=== PATIENT | male | born 1970 | race Caucasian/White ===

== ENCOUNTER 2020-01-04 11:03 | Inpatient (IN) | payer MEDICARE, MEDICAID ==
[2020-01-04] MEDS ORDERED: LOPERAMIDE HCL 2 MG CAPSULE PO PRN (14:30)
[2020-01-04] MEDS ORDERED: CloNIDine HCL 0.1 MG TABLET PO PRN (14:30)
[2020-01-04] MEDS ORDERED: TUBERCULIN, PURIFIED PROTEIN DERIVATIVE 5 TU/0.1 ML SYRINGE ID ONE (14:30)
[2020-01-04] MEDS ORDERED: IBUPROFEN 600 MG TABLET PO PRN (14:30)
[2020-01-04] MEDS ORDERED: MAGNESIUM HYDROXIDE SUSPENSION 30 ML UDCUP PO PRN (14:30)
[2020-01-04] MEDS ORDERED: MAG HYDROX/AL HYDROX/SIMETH ES 30 ML SUSPENSION UDCUP PO PRN ×2 (14:30)
[2020-01-04] MEDS ORDERED: PROMETHAZINE HCL 25 MG TABLET PO PRN (14:30)
[2020-01-04] MEDS ORDERED: HydrOXYzine PAMOATE 50 MG CAPSULE PO PRN (14:30)
[2020-01-04] MEDS ORDERED: ACETAMINOPHEN 325 MG TABLET PO PRN (14:30)
[2020-01-04] MEDS ORDERED: GuaiFENesin/D-METHORPHAN [SUGAR-FREE] 200-20MG/10 ML SYRUP UDCUP PO PRN (14:30)
[2020-01-04 16:35] VITALS: BP 133/86
[2020-01-04] MEDS: THIAMINE 100 MG TABLET PO SCH (17:03)
[2020-01-04] MEDS: GABAPENTIN 100 MG CAPSULE PO SCH ×2 (17:03→21:00)
[2020-01-04] MEDS: CloNIDine HCL 0.1 MG TABLET PO SCH ×2 (17:04→21:37)
[2020-01-04] MEDS ORDERED: NAPROXEN 500 MG TABLET PO SCH (17:30)
[2020-01-04 17:57] VITALS: BP 133/86
[2020-01-04 18:08] VITALS: BP 133/66
[2020-01-04] MEDS: BACLOFEN 10 MG TABLET PO SCH (21:37)
[2020-01-05] MEDS: CloNIDine HCL 0.1 MG TABLET PO SCH ×4 (06:00→21:11)
[2020-01-05] MEDS: OMEGA-3/DHA/EPA/FISH OIL 1,000 MG CAPSULE PO SCH (08:53)
[2020-01-05] MEDS: BACLOFEN 10 MG TABLET PO SCH ×2 (08:54→19:05)
[2020-01-05] MEDS: LORazepam 2 MG TABLET PO PRN ×3 (08:54→19:05)
[2020-01-05] MEDS: MULTIVITAMINS WITH MINERALS, THERAPEUTIC TABLET PO SCH (08:54)
[2020-01-05] MEDS: THIAMINE 100 MG TABLET PO SCH ×2 (08:54→19:06)
[2020-01-05] MEDS: DULoxetine HCL 20 MG CAPSULE PO SCH (08:54)
[2020-01-05] MEDS: FOLIC ACID 1 MG TABLET PO SCH (08:54)
[2020-01-05] MEDS: GABAPENTIN 100 MG CAPSULE PO SCH ×4 (08:54→21:11)
[2020-01-05 20:15] VITALS: BP 123/77
[2020-01-05 21:09] VITALS: BP 112/67
[2020-01-05] MEDS: ZOLPIDEM TARTRATE 10 MG TABLET PO PRN (21:11)
[2020-01-06] MEDS: CloNIDine HCL 0.1 MG TABLET PO SCH ×4 (05:50→21:21)
[2020-01-06 08:18] VITALS: BP 130/84
[2020-01-06] MEDS: OMEGA-3/DHA/EPA/FISH OIL 1,000 MG CAPSULE PO SCH (08:21)
[2020-01-06] MEDS: THIAMINE 100 MG TABLET PO SCH ×2 (08:21→17:19)
[2020-01-06] MEDS: DULoxetine HCL 20 MG CAPSULE PO SCH (08:21)
[2020-01-06] MEDS: MULTIVITAMINS WITH MINERALS, THERAPEUTIC TABLET PO SCH (08:21)
[2020-01-06] MEDS: GABAPENTIN 100 MG CAPSULE PO SCH (08:21)
[2020-01-06] MEDS: LORazepam 2 MG TABLET PO PRN ×3 (08:22→19:46)
[2020-01-06] MEDS: BACLOFEN 10 MG TABLET PO SCH ×2 (08:22→17:19)
[2020-01-06] MEDS: FOLIC ACID 1 MG TABLET PO SCH (08:22)
[2020-01-06 12:25] VITALS: BP 132/72
[2020-01-06] MEDS ORDERED: GABAPENTIN 400 MG CAPSULE PO SCH (13:00)
[2020-01-06 17:15] VITALS: BP 132/77
[2020-01-06] MEDS: GABAPENTIN 300 MG CAPSULE PO SCH (17:20)
[2020-01-06 21:20] VITALS: BP 134/79
[2020-01-07 01:37] VITALS: BP 138/98
[2020-01-07] MEDS: LORazepam 2 MG TABLET PO PRN ×2 (01:38→08:49)
[2020-01-07] MEDS: ZOLPIDEM TARTRATE 10 MG TABLET PO PRN ×2 (01:38→22:42)
[2020-01-07] MEDS: CloNIDine HCL 0.1 MG TABLET PO SCH ×3 (06:00→17:00)
[2020-01-07 08:24] VITALS: BP 132/82
[2020-01-07] MEDS: FOLIC ACID 1 MG TABLET PO SCH (09:00)
[2020-01-07] MEDS: OMEGA-3/DHA/EPA/FISH OIL 1,000 MG CAPSULE PO SCH (09:00)
[2020-01-07] MEDS: DULoxetine HCL 30 MG CAPSULE PO SCH (09:12)
[2020-01-07] MEDS: BACLOFEN 10 MG TABLET PO SCH ×2 (09:12→17:00)
[2020-01-07] MEDS: GABAPENTIN 300 MG CAPSULE PO SCH ×4 (10:34→17:32)
[2020-01-07] MEDS: THIAMINE 100 MG TABLET PO SCH ×2 (10:35→17:00)
[2020-01-07] MEDS: MULTIVITAMINS WITH MINERALS, THERAPEUTIC TABLET PO SCH (10:35)
[2020-01-07] MEDS ORDERED: HydrOXYzine HCL 50 MG TABLET PO PRN (14:15)
[2020-01-07 17:00] VITALS: BP 140/99
[2020-01-07] MEDS ORDERED: LORazepam 1 MG TABLET PO PRN (17:15)
[2020-01-07] MEDS: OxyCODONE HCL 10 MG IR TABLET PO SCH (20:54)
[2020-01-07] MEDS ORDERED: OxyCODONE HCL 10 MG IR TABLET PO ONE (22:30)
[2020-01-08 01:01] VITALS: BP 133/86
[2020-01-08] MEDS: DULoxetine HCL 30 MG CAPSULE PO SCH (08:01)
[2020-01-08] MEDS: FOLIC ACID 1 MG TABLET PO SCH (08:01)
[2020-01-08] MEDS: THIAMINE 100 MG TABLET PO SCH ×2 (08:01→16:45)
[2020-01-08] MEDS: GABAPENTIN 300 MG CAPSULE PO SCH ×3 (08:01→16:45)
[2020-01-08] MEDS: OMEGA-3/DHA/EPA/FISH OIL 1,000 MG CAPSULE PO SCH (08:01)
[2020-01-08] MEDS: MULTIVITAMINS WITH MINERALS, THERAPEUTIC TABLET PO SCH (08:01)
[2020-01-08] MEDS: OxyCODONE HCL 10 MG IR TABLET PO SCH ×4 (08:02→20:28)
[2020-01-08] MEDS: BACLOFEN 10 MG TABLET PO SCH ×2 (08:24→16:45)
[2020-01-08 08:25] VITALS: BP 142/89
[2020-01-08] MEDS: CEPHALEXIN MONOHYDRATE 500 MG CAPSULE PO SCH ×2 (12:26→16:45)
[2020-01-08 16:20] VITALS: BP 133/90
[2020-01-08] MEDS: ZOLPIDEM TARTRATE 10 MG TABLET PO PRN (22:08)
[2020-01-09 03:01] VITALS: BP 129/70
[2020-01-09 08:10] VITALS: BP 103/60
[2020-01-09] MEDS: OxyCODONE HCL 10 MG IR TABLET PO SCH ×4 (08:28→20:31)
[2020-01-09] MEDS: FOLIC ACID 1 MG TABLET PO SCH (09:59)
[2020-01-09] MEDS: DULoxetine HCL 30 MG CAPSULE PO SCH (09:59)
[2020-01-09] MEDS: OMEGA-3/DHA/EPA/FISH OIL 1,000 MG CAPSULE PO SCH (09:59)
[2020-01-09] MEDS: THIAMINE 100 MG TABLET PO SCH ×2 (10:00→16:34)
[2020-01-09] MEDS: BACLOFEN 10 MG TABLET PO SCH ×2 (10:00→16:34)
[2020-01-09] MEDS: MULTIVITAMINS WITH MINERALS, THERAPEUTIC TABLET PO SCH (10:00)
[2020-01-09] MEDS: GABAPENTIN 300 MG CAPSULE PO SCH ×3 (10:00→16:33)
[2020-01-09] MEDS: CEPHALEXIN MONOHYDRATE 500 MG CAPSULE PO SCH ×3 (10:16→16:34)
[2020-01-09 16:22] VITALS: BP 134/89
[2020-01-09] MEDS: QUEtiapine FUMARATE 100 MG TABLET PO PRN (16:45)
[2020-01-09] MEDS: HydrOXYzine PAMOATE 50 MG CAPSULE PO PRN (16:47)
[2020-01-09] MEDS: ZOLPIDEM TARTRATE 10 MG TABLET PO PRN (21:27)
[2020-01-10 07:23] VITALS: BP 112/68
[2020-01-10 08:03] LABS: BASOPHILS % (AUTO) 0.6 % (0.0-2.0); HEMATOCRIT 42.4 % (41-53); HEMOGLOBIN 14.9 g/dL (13.5-17.5); LYMPHOCYTES # (AUTO) 3.1 K/uL (1.0-4.8); LYMPHOCYTES % (AUTO) 40.5 % (22.0-44.0); MEAN CORPUSCULAR HEMOGLOBIN 31.2 pg (26.0-34.0); MEAN CORPUSCULAR HGB CONC 35.2 G/dL (31.0-37.0); MEAN CORPUSCULAR VOLUME 89 fL (80-100); MONOCYTES # (AUTO) 0.7 K/uL (0.1-1.0); MONOCYTES % (AUTO) 9.1 % (2.0-9.0); NEUTROPHILS # (AUTO) 3.3 K/uL (1.8-7.7); NEUTROPHILS % (AUTO) 43.8 % (40.0-70.0); PLATELET COUNT (AUTO) 216 K/uL (150-450); RED BLOOD CELL COUNT(AUTO) 4.79 MIL/uL (4.50-5.90); RED CELL DISTRIBUTION WIDTH 13.5 % (11.5-14.5)
[2020-01-10 08:18] LABS: HEMOGLOBIN A1C 5.5 % (3.8-5.6)
[2020-01-10] MEDS: GABAPENTIN 300 MG CAPSULE PO SCH ×3 (08:27→16:44)
[2020-01-10] MEDS: THIAMINE 100 MG TABLET PO SCH ×2 (08:27→16:44)
[2020-01-10] MEDS: BACLOFEN 10 MG TABLET PO SCH ×2 (08:28→16:04)
[2020-01-10] MEDS: OxyCODONE HCL 10 MG IR TABLET PO SCH ×4 (08:28→20:06)
[2020-01-10] MEDS: OMEGA-3/DHA/EPA/FISH OIL 1,000 MG CAPSULE PO SCH (08:28)
[2020-01-10] MEDS: DULoxetine HCL 60 MG CAPSULE PO SCH (08:29)
[2020-01-10] MEDS: FOLIC ACID 1 MG TABLET PO SCH (08:29)
[2020-01-10] MEDS: CEPHALEXIN MONOHYDRATE 500 MG CAPSULE PO SCH ×3 (08:29→16:44)
[2020-01-10] MEDS: MULTIVITAMINS WITH MINERALS, THERAPEUTIC TABLET PO SCH (08:29)
[2020-01-10 08:52] VITALS: BP 141/87
[2020-01-10 08:52] LABS: ANION GAP 0 mmol/L (8-16); BILIRUBIN,TOTAL 0.3 mg/dL (0.1-1.0); CALCIUM, TOTAL 8.7 mg/dL (8.8-10.5); CARBON DIOXIDE 30 mmol/L (22-29); CHLORIDE 104 mmol/L (98-107); CREATININE 0.82 mg/dL (0.60-1.30); GLOMERULAR FILTR. RATE CALC > 60 mL/min (>60); GLUCOSE,RANDOM 80 mg/dL (70-110); POTASSIUM 4.5 mmol/L (3.5-5.1); SODIUM SERUM 134 mmol/L (136-145); UREA NITROGEN, BLOOD 16 mg/dL (7-18)
[2020-01-10 08:53] LABS: ALANINE AMINOTRANSFERASE 40 U/L (12-78); ALBUMIN 3.1 g/dL (3.4-5.0); ALKALINE PHOSPHATASE 85 U/L (46-116); ASPARTATE AMINOTRANSFERASE 16 U/L (15-37); CHOL/HDL RATIO 3.2 (4.2-7.3); CHOLESTEROL 108 mg/dL (131-200); FREE T4 (FREE THYROXINE) 1.28 ng/dL (0.76-1.46); HDL CHOLESTEROL 34 mg/dL (40-60); LDL CHOL (CALC.) 54 mg/dL (0-130); TOTAL PROTEIN, SERUM 7.4 g/dL (6.4-8.2); TRIGLYCERIDES 99 mg/dL (15-150)
[2020-01-10 16:16] VITALS: BP 133/85
[2020-01-10] MEDS: GABAPENTIN 400 MG CAPSULE PO SCH (16:44)
[2020-01-11 01:50] VITALS: BP 138/89
[2020-01-11] MEDS: ZOLPIDEM TARTRATE 10 MG TABLET PO PRN (01:55)
[2020-01-11 08:30] VITALS: BP 128/62
[2020-01-11] MEDS: THIAMINE 100 MG TABLET PO SCH ×2 (08:55→16:26)
[2020-01-11] MEDS: BACLOFEN 10 MG TABLET PO SCH ×2 (08:55→16:24)
[2020-01-11] MEDS: CEPHALEXIN MONOHYDRATE 500 MG CAPSULE PO SCH ×3 (08:55→16:26)
[2020-01-11] MEDS: GABAPENTIN 300 MG CAPSULE PO SCH ×3 (08:56→16:25)
[2020-01-11] MEDS: FOLIC ACID 1 MG TABLET PO SCH (08:56)
[2020-01-11] MEDS: OxyCODONE HCL 10 MG IR TABLET PO SCH ×4 (08:56→20:01)
[2020-01-11] MEDS: GABAPENTIN 400 MG CAPSULE PO SCH ×3 (08:56→16:25)
[2020-01-11] MEDS: OMEGA-3/DHA/EPA/FISH OIL 1,000 MG CAPSULE PO SCH (08:56)
[2020-01-11] MEDS: MULTIVITAMINS WITH MINERALS, THERAPEUTIC TABLET PO SCH (08:56)
[2020-01-11] MEDS: DULoxetine HCL 60 MG CAPSULE PO SCH (08:57)
[2020-01-11] MEDS: SULFAMETHOX/TRIMETH DS 800-160 MG/TABLET PO SCH ×2 (08:57→16:26)
[2020-01-11] MEDS: HydrOXYzine PAMOATE 50 MG CAPSULE PO PRN (13:10)
[2020-01-11] MEDS: QUEtiapine FUMARATE 100 MG TABLET PO PRN (13:10)
[2020-01-11 16:44] VITALS: BP 103/58
[2020-01-12 01:23] VITALS: BP 140/99
[2020-01-12] MEDS: ZOLPIDEM TARTRATE 10 MG TABLET PO PRN ×2 (01:28→21:19)
[2020-01-12] MEDS: GABAPENTIN 300 MG CAPSULE PO SCH ×2 (08:02→12:22)
[2020-01-12] MEDS: FOLIC ACID 1 MG TABLET PO SCH (08:02)
[2020-01-12] MEDS: OMEGA-3/DHA/EPA/FISH OIL 1,000 MG CAPSULE PO SCH (08:02)
[2020-01-12] MEDS: MULTIVITAMINS WITH MINERALS, THERAPEUTIC TABLET PO SCH (08:02)
[2020-01-12] MEDS: GABAPENTIN 400 MG CAPSULE PO SCH ×2 (08:02→12:22)
[2020-01-12] MEDS: BACLOFEN 10 MG TABLET PO SCH ×2 (08:03→16:04)
[2020-01-12] MEDS: OxyCODONE HCL 10 MG IR TABLET PO SCH ×4 (08:03→20:23)
[2020-01-12 08:08] VITALS: BP 93/56
[2020-01-12] MEDS: SULFAMETHOX/TRIMETH DS 800-160 MG/TABLET PO SCH ×2 (08:58→16:37)
[2020-01-12] MEDS: DULoxetine HCL 20 MG CAPSULE PO SCH (08:58)
[2020-01-12] MEDS: CEPHALEXIN MONOHYDRATE 500 MG CAPSULE PO SCH ×3 (08:58→16:04)
[2020-01-12] MEDS ORDERED: SULF1TAB41 PO (08:59)
[2020-01-12] MEDS ORDERED: DULO30CA96 PO (08:59)
[2020-01-12] MEDS ORDERED: CEPH500 PO (08:59)
[2020-01-12] MEDS: THIAMINE 100 MG TABLET PO SCH ×2 (08:59→16:04)
[2020-01-12] MEDS ORDERED: THIA100T80 PO (08:59)
[2020-01-12] MEDS ORDERED: OXYC10TA59 PO (08:59)
[2020-01-12] MEDS ORDERED: GABA-1201 PO (08:59)
[2020-01-12] MEDS ORDERED: FOLI-130 PO (08:59)
[2020-01-12 16:12] VITALS: BP 100/69
[2020-01-13 08:12] VITALS: BP 149/90
[2020-01-13] MEDS: DULoxetine HCL 20 MG CAPSULE PO SCH (08:19)
[2020-01-13] MEDS: OMEGA-3/DHA/EPA/FISH OIL 1,000 MG CAPSULE PO SCH (08:19)
[2020-01-13] MEDS: MULTIVITAMINS WITH MINERALS, THERAPEUTIC TABLET PO SCH (08:19)
[2020-01-13] MEDS: THIAMINE 100 MG TABLET PO SCH ×2 (08:19→16:01)
[2020-01-13] MEDS: FOLIC ACID 1 MG TABLET PO SCH (08:19)
[2020-01-13] MEDS: BACLOFEN 10 MG TABLET PO SCH ×2 (08:19→16:01)
[2020-01-13] MEDS: SULFAMETHOX/TRIMETH DS 800-160 MG/TABLET PO SCH ×2 (08:19→16:01)
[2020-01-13] MEDS: CEPHALEXIN MONOHYDRATE 500 MG CAPSULE PO SCH ×3 (08:19→16:01)
[2020-01-13] MEDS: OxyCODONE HCL 10 MG IR TABLET PO SCH ×4 (08:21→20:18)
[2020-01-13] MEDS: HYDROCORTISONE 1% 30 GM CREAM TP SCH ×3 (08:23→16:04)
[2020-01-13] MEDS: BACITRACIN 28 GM OINTMENT TP SCH (08:24)
[2020-01-13] MEDS: HydrOXYzine PAMOATE 50 MG CAPSULE PO PRN (13:34)
[2020-01-13] MEDS: QUEtiapine FUMARATE 100 MG TABLET PO PRN (13:34)
[2020-01-13] MEDS ORDERED: DULO20CA27 PO (15:12)
[2020-01-13] MEDS: GABAPENTIN 400 MG CAPSULE PO SCH (16:01)
[2020-01-13 16:09] VITALS: BP 118/80
[2020-01-13] MEDS: ZOLPIDEM TARTRATE 10 MG TABLET PO PRN (20:18)
[2020-01-14 08:11] VITALS: BP 142/95
[2020-01-14] MEDS: MULTIVITAMINS WITH MINERALS, THERAPEUTIC TABLET PO SCH (08:22)
[2020-01-14] MEDS: FOLIC ACID 1 MG TABLET PO SCH (08:22)
[2020-01-14] MEDS: OMEGA-3/DHA/EPA/FISH OIL 1,000 MG CAPSULE PO SCH (08:23)
[2020-01-14] MEDS: GABAPENTIN 400 MG CAPSULE PO SCH ×3 (08:23→16:10)
[2020-01-14] MEDS: BACLOFEN 10 MG TABLET PO SCH ×2 (08:23→16:10)
[2020-01-14] MEDS: THIAMINE 100 MG TABLET PO SCH (08:23)
[2020-01-14] MEDS: SULFAMETHOX/TRIMETH DS 800-160 MG/TABLET PO SCH ×2 (08:24→16:57)
[2020-01-14] MEDS: CEPHALEXIN MONOHYDRATE 500 MG CAPSULE PO SCH ×3 (08:24→16:57)
[2020-01-14] MEDS: OxyCODONE HCL 10 MG IR TABLET PO SCH ×4 (08:29→19:57)
[2020-01-14] MEDS: DULoxetine HCL 20 MG CAPSULE PO SCH (08:36)
[2020-01-14] MEDS: HYDROCORTISONE 1% 30 GM CREAM TP SCH ×3 (09:38→16:54)
[2020-01-14] MEDS: BACITRACIN 28 GM OINTMENT TP SCH (09:38)
[2020-01-14 12:54] VITALS: BP 132/79
[2020-01-14 16:11] VITALS: BP 124/82
[2020-01-14] MEDS: ZOLPIDEM TARTRATE 10 MG TABLET PO PRN (20:53)
[2020-01-15 09:00] VITALS: BP 150/98
[2020-01-15] MEDS: CEPHALEXIN MONOHYDRATE 500 MG CAPSULE PO SCH ×2 (09:00→09:19)
[2020-01-15] MEDS: DULoxetine HCL 20 MG CAPSULE PO SCH (09:18)
[2020-01-15] MEDS: SULFAMETHOX/TRIMETH DS 800-160 MG/TABLET PO SCH ×2 (09:19→16:55)
[2020-01-15] MEDS: BACLOFEN 10 MG TABLET PO SCH ×2 (09:20→15:59)
[2020-01-15] MEDS: GABAPENTIN 400 MG CAPSULE PO SCH ×3 (09:20→15:58)
[2020-01-15] MEDS: OMEGA-3/DHA/EPA/FISH OIL 1,000 MG CAPSULE PO SCH (09:21)
[2020-01-15] MEDS: MULTIVITAMINS WITH MINERALS, THERAPEUTIC TABLET PO SCH (09:21)
[2020-01-15] MEDS: OxyCODONE HCL 10 MG IR TABLET PO SCH ×4 (09:21→20:47)
[2020-01-15] MEDS: HYDROCORTISONE 1% 30 GM CREAM TP SCH ×3 (09:27→16:55)
[2020-01-15] MEDS: BACITRACIN 28 GM OINTMENT TP SCH (09:27)
[2020-01-15] MEDS: QUEtiapine FUMARATE 100 MG TABLET PO PRN (13:50)
[2020-01-15 16:14] VITALS: BP 90/62
[2020-01-15] MEDS: ZOLPIDEM TARTRATE 10 MG TABLET PO PRN (20:47)
[2020-01-16 01:47] VITALS: BP 134/84
[2020-01-16] MEDS: SULFAMETHOX/TRIMETH DS 800-160 MG/TABLET PO SCH ×2 (09:00→16:50)
[2020-01-16] MEDS: OMEGA-3/DHA/EPA/FISH OIL 1,000 MG CAPSULE PO SCH (09:17)
[2020-01-16] MEDS: DULoxetine HCL 20 MG CAPSULE PO SCH (09:18)
[2020-01-16] MEDS: BACLOFEN 10 MG TABLET PO SCH ×2 (09:18→16:25)
[2020-01-16] MEDS: GABAPENTIN 400 MG CAPSULE PO SCH ×3 (09:18→16:25)
[2020-01-16] MEDS: MULTIVITAMINS WITH MINERALS, THERAPEUTIC TABLET PO SCH (09:18)
[2020-01-16] MEDS: OxyCODONE HCL 10 MG IR TABLET PO SCH ×4 (09:21→20:04)
[2020-01-16] MEDS: BACITRACIN 28 GM OINTMENT TP SCH (09:22)
[2020-01-16] MEDS: HYDROCORTISONE 1% 30 GM CREAM TP SCH ×3 (09:23→16:50)
[2020-01-16 10:10] VITALS: BP 130/76
[2020-01-16 16:13] VITALS: BP 120/68
[2020-01-16] MEDS ORDERED: DULO20CA27 PO (18:56)
[2020-01-16] MEDS ORDERED: GABA-1201 PO (18:56)
[2020-01-16] MEDS ORDERED: OMEG-135 PO (18:56)
[2020-01-16] MEDS ORDERED: ACAM333T7 PO (18:56)
[2020-01-16] MEDS: ZOLPIDEM TARTRATE 10 MG TABLET PO PRN (20:34)
[2020-01-17 01:09] VITALS: BP 155/95
[2020-01-17] MEDS: GABAPENTIN 400 MG CAPSULE PO SCH ×3 (08:18→16:05)
[2020-01-17] MEDS: SULFAMETHOX/TRIMETH DS 800-160 MG/TABLET PO SCH ×2 (08:18→16:05)
[2020-01-17] MEDS: OMEGA-3/DHA/EPA/FISH OIL 1,000 MG CAPSULE PO SCH (08:18)
[2020-01-17] MEDS: MULTIVITAMINS WITH MINERALS, THERAPEUTIC TABLET PO SCH (08:18)
[2020-01-17] MEDS: BACLOFEN 10 MG TABLET PO SCH ×2 (08:18→16:04)
[2020-01-17] MEDS: DULoxetine HCL 20 MG CAPSULE PO SCH (08:19)
[2020-01-17] MEDS: OxyCODONE HCL 10 MG IR TABLET PO SCH ×4 (08:19→20:07)
[2020-01-17] MEDS: HYDROCORTISONE 1% 30 GM CREAM TP SCH ×3 (08:27→16:06)
[2020-01-17 08:30] VITALS: BP 143/90
[2020-01-17] MEDS: BACITRACIN 28 GM OINTMENT TP SCH (09:32)
[2020-01-17 16:15] VITALS: BP 144/86
[2020-01-17] MEDS: ZOLPIDEM TARTRATE 10 MG TABLET PO PRN (20:36)
[2020-01-18 04:35] VITALS: BP 136/86
[2020-01-18] MEDS ORDERED: MULTIVITAMINS WITH MINERALS, THERAPEUTIC TABLET PO SCH (07:00)
[2020-01-18] MEDS ORDERED: OxyCODONE HCL 10 MG IR TABLET PO SCH (07:00)
[2020-01-18] MEDS ORDERED: GABAPENTIN 400 MG CAPSULE PO SCH (07:00)
[2020-01-18] MEDS ORDERED: DULoxetine HCL 20 MG CAPSULE PO SCH (07:00)
[2020-01-18] MEDS ORDERED: SULFAMETHOX/TRIMETH DS 800-160 MG/TABLET PO SCH (07:00)
[2020-01-18] MEDS ORDERED: OMEGA-3/DHA/EPA/FISH OIL 1,000 MG CAPSULE PO SCH (07:00)
[2020-01-18] MEDS ORDERED: BACLOFEN 10 MG TABLET PO SCH (07:00)
== END 2020-01-18 07:30 | disposition home or self-care (01) | DRG 885 ==
LOC: B2X 16:49
PROVIDERS: ADMIT Psychiatry & Neurology Psychiatry; ATTEND Psychiatry & Neurology Psychiatry
DX: F33.2 Major depressive disorder, recurrent severe without psychotic features (principal); F11.20 Opioid dependence, uncomplicated; R45.851 Suicidal ideations; M54.9 Dorsalgia, unspecified; F41.8 Other specified anxiety disorders; G89.29 Other chronic pain; Z91.14 Patient's other noncompliance with medication regimen; Z55.9 Problems related to education and literacy, unspecified; Z59.9 Problem related to housing and economic circumstances, unspecified; Z65.3 Problems related to other legal circumstances
CPT/HCPCS: 83036; 84439; 86592

== ENCOUNTER 2020-01-10 20:43 | Emergency (ER) | payer MEDICARE, MEDICAID ==
[~2020-01-10] VITALS: Ht 195.6 cm; Wt 127.3 kg
[2020-01-10 20:58] VITALS: BP 112/54
[2020-01-10] MEDS ORDERED: LIDOCAINE 2%/EPI 1:200,000/PF 10 ML VIAL INJ ONE (23:00)
[2020-01-10] MEDS ORDERED: HYDROmorphone 2 MG/ML SYRINGE IM ONE (23:00)
[2020-01-12] MEDS ORDERED: DULO30CA96 PO (08:59)
[2020-01-12] MEDS ORDERED: THIA100T80 PO (08:59)
[2020-01-12] MEDS ORDERED: OXYC10TA59 PO (08:59)
[2020-01-12] MEDS ORDERED: CEPH500 PO (08:59)
[2020-01-12] MEDS ORDERED: SULF1TAB41 PO (08:59)
[2020-01-12] MEDS ORDERED: FOLI-130 PO (08:59)
[2020-01-12] MEDS ORDERED: GABA-1201 PO (08:59)
== END 2020-01-11 01:40 | disposition home or self-care (01) ==
LOC: EMS 20:46
DX: L02.414 Cutaneous abscess of left upper limb (principal); F31.9 Bipolar disorder, unspecified
CPT/HCPCS: 10060; 73080; 87070; 96372; 99283; J1170; 87205

== ENCOUNTER 2020-01-12 08:36 | Emergency (ER) | payer MEDICARE, MEDICAID ==
[~2020-01-12] VITALS: Ht 195.6 cm; Wt 127.3 kg
[2020-01-12] MEDS ORDERED: DULO30CA96 PO (08:59)
[2020-01-12] MEDS ORDERED: GABA-1201 PO (08:59)
[2020-01-12] MEDS ORDERED: OXYC10TA59 PO (08:59)
[2020-01-12] MEDS ORDERED: SULF1TAB41 PO (08:59)
[2020-01-12] MEDS ORDERED: CEPH500 PO (08:59)
[2020-01-12] MEDS ORDERED: THIA100T80 PO (08:59)
[2020-01-12] MEDS ORDERED: FOLI-130 PO (08:59)
[2020-01-12] MEDS ORDERED: ACETAMINOPHEN 500 MG TABLET PO ONE (09:00)
[2020-01-12] MEDS ORDERED: OxyCODONE HCL 5 MG IR TABLET PO ONE (09:00)
[2020-01-12] MEDS ORDERED: BACITRACIN 0.9 GM PACKET OINTMENT TP ONE (09:00)
[2020-01-12 10:00] VITALS: BP 118/70
[2020-01-13] MEDS ORDERED: DULO20CA27 PO (15:12)
== END 2020-01-12 10:07 | disposition home or self-care (01) ==
LOC: EMS 08:37
DX: L02.414 Cutaneous abscess of left upper limb (principal); F31.9 Bipolar disorder, unspecified; Z48.00 Encounter for change or removal of nonsurgical wound dressing; Z88.5 Allergy status to narcotic agent

== ENCOUNTER 2020-02-23 05:22 | Inpatient (IN) | payer MEDICARE, MEDICAID ==
[~2020-02-23] VITALS: Ht 195.6 cm; Wt 143.8 kg
[~2020-02-23 05:22] MED LIST: ACAM333T7 PO; DULO20CA27 PO; DULO30CA96 PO; FOLI-130 PO; GABA-1201 PO; MULT-1239 PO; OMEG-135 PO; THIA100T80 PO; TRAZ150 PO
[2020-02-23] MEDS ORDERED: OXYC10TA59 PO (08:06)
[2020-02-23 08:43] LABS: BASOPHILS % (AUTO) 0.6 % (0.0-2.0); EOSINOPHILS % (AUTO) 3.6 % (1.0-6.0); HEMATOCRIT 38.4 % (41-53); HEMOGLOBIN 12.9 g/dL (13.5-17.5); LYMPHOCYTES # (AUTO) 2.3 K/uL (1.0-4.8); LYMPHOCYTES % (AUTO) 34.1 % (22.0-44.0); MEAN CORPUSCULAR HEMOGLOBIN 30.4 pg (26.0-34.0); MEAN CORPUSCULAR HGB CONC 33.6 G/dL (31.0-37.0); MEAN CORPUSCULAR VOLUME 91 fL (80-100); MONOCYTES # (AUTO) 0.6 K/uL (0.1-1.0); MONOCYTES % (AUTO) 9.5 % (2.0-9.0); NEUTROPHILS # (AUTO) 3.5 K/uL (1.8-7.7); NEUTROPHILS % (AUTO) 52.2 % (40.0-70.0); PLATELET COUNT (AUTO) 179 K/uL (150-450); RED BLOOD CELL COUNT(AUTO) 4.24 MIL/uL (4.50-5.90); RED CELL DISTRIBUTION WIDTH 14.5 % (11.5-14.5)
[2020-02-23 08:52] LABS: ANION GAP 3 mmol/L (8-16); CALCIUM, TOTAL 8.4 mg/dL (8.8-10.5); CARBON DIOXIDE 31 mmol/L (22-29); CHLORIDE 105 mmol/L (98-107); CREATININE 0.91 mg/dL (0.60-1.30); GLOMERULAR FILTR. RATE CALC > 60 mL/min (>60); GLUCOSE,RANDOM 93 mg/dL (70-110); POTASSIUM 3.7 mmol/L (3.5-5.1); SODIUM SERUM 139 mmol/L (136-145); UREA NITROGEN, BLOOD 14 mg/dL (7-18)
[2020-02-23 08:58] LABS: ALANINE AMINOTRANSFERASE 37 U/L (12-78); ALKALINE PHOSPHATASE 69 U/L (46-116); ASPARTATE AMINOTRANSFERASE 24 U/L (15-37); BILIRUBIN,TOTAL 0.4 mg/dL (0.1-1.0); TOTAL PROTEIN, SERUM 6.9 g/dL (6.4-8.2)
[2020-02-23] MEDS ORDERED: QUEtiapine FUMARATE 100 MG TABLET PO PRN (10:15)
[2020-02-23] MEDS ORDERED: MAGNESIUM HYDROXIDE SUSPENSION 30 ML UDCUP PO PRN (10:15)
[2020-02-23] MEDS ORDERED: GuaiFENesin/D-METHORPHAN [SUGAR-FREE] 200-20MG/10 ML SYRUP UDCUP PO PRN (10:15)
[2020-02-23] MEDS ORDERED: MAG HYDROX/AL HYDROX/SIMETH ES 30 ML SUSPENSION UDCUP PO PRN ×2 (10:15)
[2020-02-23] MEDS ORDERED: HydrOXYzine PAMOATE 50 MG CAPSULE PO PRN ×2 (10:15)
[2020-02-23] MEDS ORDERED: CloNIDine HCL 0.1 MG TABLET PO PRN (10:15)
[2020-02-23] MEDS ORDERED: PROMETHAZINE HCL 25 MG TABLET PO PRN (10:15)
[2020-02-23] MEDS ORDERED: IBUPROFEN 600 MG TABLET PO PRN (10:15)
[2020-02-23 12:00] LABS: COVID AG,FIA SOURCE NASOPHARYNGEAL
[2020-02-23] MEDS ORDERED: CloNIDine HCL 0.1 MG TABLET PO SCH (12:00)
[2020-02-23 14:00] VITALS: BP 137/77
[2020-02-23] MEDS: ACAMPROSATE CALCIUM 333 MG DR TABLET PO SCH ×2 (14:08→17:16)
[2020-02-23] MEDS: GABAPENTIN 400 MG CAPSULE PO SCH ×3 (14:08→20:04)
[2020-02-23] MEDS: LORazepam 2 MG TABLET PO PRN ×2 (14:15→18:47)
[2020-02-23 15:00] VITALS: BP 135/70
[2020-02-23] MEDS ORDERED: OxyCODONE HCL 10 MG ER TABLET PO PRN (15:00)
[2020-02-23] MEDS: THIAMINE 100 MG TABLET PO SCH (17:16)
[2020-02-23 18:31] VITALS: BP 147/89
[2020-02-23] MEDS: OxyCODONE HCL 10 MG IR TABLET PO PRN (19:00)
[2020-02-23] MEDS: TraZODone HCL 150 MG TABLET PO SCH (20:04)
[2020-02-23] MEDS: MELATONIN 5 MG TABLET PO SCH (20:04)
[2020-02-23 23:06] VITALS: BP 147/89
[2020-02-23] MEDS: ACETAMINOPHEN 325 MG TABLET PO PRN (23:57)
[2020-02-24] VITALS (8 sets, daily range): BP systolic 124–139; BP diastolic 69–89
[2020-02-24] MEDS: OxyCODONE HCL 10 MG IR TABLET PO PRN ×3 (04:31→19:01)
[2020-02-24] MEDS: FOLIC ACID 1 MG TABLET PO SCH (08:51)
[2020-02-24] MEDS: ACAMPROSATE CALCIUM 333 MG DR TABLET PO SCH ×3 (08:51→16:25)
[2020-02-24] MEDS: OMEGA-3/DHA/EPA/FISH OIL 1,000 MG CAPSULE PO SCH (08:51)
[2020-02-24] MEDS: GABAPENTIN 400 MG CAPSULE PO SCH ×4 (08:51→20:25)
[2020-02-24] MEDS: THIAMINE 100 MG TABLET PO SCH ×2 (08:51→16:25)
[2020-02-24] MEDS: MULTIVITAMINS WITH MINERALS, THERAPEUTIC TABLET PO SCH (08:51)
[2020-02-24] MEDS ORDERED: DULoxetine HCL 30 MG CAPSULE PO SCH (09:00)
[2020-02-24] MEDS: LORazepam 2 MG TABLET PO PRN ×2 (11:50→16:25)
[2020-02-24] MEDS ORDERED: OXYC10TA92 PO (13:44)
[2020-02-24] MEDS ORDERED: OxyCODONE HCL 10 MG IR TABLET PO PRN (14:00)
[2020-02-24] MEDS ORDERED: GABAPENTIN 300 MG CAPSULE PO PRN (18:30)
[2020-02-24] MEDS: TraZODone HCL 150 MG TABLET PO SCH (20:25)
[2020-02-24] MEDS: MELATONIN 5 MG TABLET PO SCH (20:25)
[2020-02-25 00:52] VITALS: BP 128/80
[2020-02-25 03:32] VITALS: BP 131/80
[2020-02-25] MEDS: OxyCODONE HCL 10 MG IR TABLET PO PRN ×2 (03:36→11:40)
[2020-02-25] MEDS: GABAPENTIN 400 MG CAPSULE PO SCH ×4 (09:00→20:51)
[2020-02-25] MEDS: MULTIVITAMINS WITH MINERALS, THERAPEUTIC TABLET PO SCH (09:00)
[2020-02-25] MEDS: OMEGA-3/DHA/EPA/FISH OIL 1,000 MG CAPSULE PO SCH (09:00)
[2020-02-25] MEDS: DULoxetine HCL 20 MG CAPSULE PO SCH (09:00)
[2020-02-25] MEDS: FOLIC ACID 1 MG TABLET PO SCH (09:00)
[2020-02-25] MEDS: ACAMPROSATE CALCIUM 333 MG DR TABLET PO SCH ×3 (09:00→17:00)
[2020-02-25] MEDS: THIAMINE 100 MG TABLET PO SCH ×2 (09:00→17:01)
[2020-02-25 11:40] VITALS: BP 134/74
[2020-02-25] MEDS ORDERED: OxyCODONE HCL 10 MG ER TABLET PO SCH (13:21)
[2020-02-25] MEDS: ACETAMINOPHEN 325 MG TABLET PO PRN (18:27)
[2020-02-25 19:54] VITALS: BP 121/74
[2020-02-25] MEDS: OxyCODONE HCL 5 MG IR TABLET PO PRN (19:54)
[2020-02-25] MEDS ORDERED: LORazepam 2 MG/ML VIAL ONE (20:07)
[2020-02-25] MEDS ORDERED: DiphenhydrAMINE HCL 50 MG/ML VIAL ONE (20:07)
[2020-02-25] MEDS ORDERED: ChlorproMAZINE HCL 50 MG/2 ML AMP ONE (20:07)
[2020-02-25] MEDS ORDERED: DiphenhydrAMINE HCL 50 MG/ML VIAL IM ONE (20:15)
[2020-02-25] MEDS ORDERED: LORazepam 2 MG/ML VIAL IM ONE (20:15)
[2020-02-25] MEDS ORDERED: ChlorproMAZINE HCL 50 MG/2 ML AMP IM ONE (20:15)
[2020-02-25] MEDS: TraZODone HCL 150 MG TABLET PO SCH (20:51)
[2020-02-25] MEDS: MELATONIN 5 MG TABLET PO SCH (20:51)
[2020-02-26 01:08] VITALS: BP 118/68
[2020-02-26] MEDS: OxyCODONE HCL 5 MG IR TABLET PO PRN ×3 (04:14→21:05)
[2020-02-26] MEDS: THIAMINE 100 MG TABLET PO SCH ×2 (09:57→17:10)
[2020-02-26] MEDS: GABAPENTIN 400 MG CAPSULE PO SCH ×4 (09:57→21:06)
[2020-02-26] MEDS: DULoxetine HCL 20 MG CAPSULE PO SCH (09:58)
[2020-02-26] MEDS: ACAMPROSATE CALCIUM 333 MG DR TABLET PO SCH ×3 (09:58→17:00)
[2020-02-26] MEDS: FOLIC ACID 1 MG TABLET PO SCH (09:58)
[2020-02-26] MEDS: OMEGA-3/DHA/EPA/FISH OIL 1,000 MG CAPSULE PO SCH (09:58)
[2020-02-26] MEDS: MULTIVITAMINS WITH MINERALS, THERAPEUTIC TABLET PO SCH (10:16)
[2020-02-26 12:36] VITALS: BP 128/75
[2020-02-26 12:50] VITALS: BP 131/77
[2020-02-26 16:17] VITALS: BP 138/78
[2020-02-26 16:20] VITALS: BP 138/78
[2020-02-26] MEDS: LOPERAMIDE HCL 2 MG CAPSULE PO PRN (17:55)
[2020-02-26 20:50] VITALS: BP 140/82
[2020-02-26] MEDS: MELATONIN 5 MG TABLET PO SCH (21:06)
[2020-02-26] MEDS: TraZODone HCL 150 MG TABLET PO SCH (21:06)
[2020-02-26] MEDS: ZOLPIDEM TARTRATE 10 MG TABLET PO PRN (21:20)
[2020-02-27 01:03] VITALS: BP 128/70
[2020-02-27] MEDS: OxyCODONE HCL 5 MG IR TABLET PO PRN ×3 (05:24→21:30)
[2020-02-27] MEDS: DULoxetine HCL 20 MG CAPSULE PO SCH (09:32)
[2020-02-27] MEDS: ACAMPROSATE CALCIUM 333 MG DR TABLET PO SCH ×3 (09:32→17:16)
[2020-02-27] MEDS: MULTIVITAMINS WITH MINERALS, THERAPEUTIC TABLET PO SCH (09:32)
[2020-02-27] MEDS: OMEGA-3/DHA/EPA/FISH OIL 1,000 MG CAPSULE PO SCH (09:32)
[2020-02-27] MEDS: FOLIC ACID 1 MG TABLET PO SCH (09:32)
[2020-02-27] MEDS: GABAPENTIN 400 MG CAPSULE PO SCH ×4 (09:32→20:41)
[2020-02-27] MEDS: THIAMINE 100 MG TABLET PO SCH ×2 (09:33→17:16)
[2020-02-27] MEDS ORDERED: CloNIDine HCL 0.1 MG TABLET PO PRN (16:00)
[2020-02-27] MEDS ORDERED: IBUPROFEN 600 MG TABLET PO PRN (16:00)
[2020-02-27] MEDS ORDERED: MAG HYDROX/AL HYDROX/SIMETH ES 30 ML SUSPENSION UDCUP PO PRN (16:00)
[2020-02-27] MEDS: CloNIDine HCL 0.1 MG TABLET PO SCH ×2 (17:28→21:30)
[2020-02-27] MEDS: MELATONIN 5 MG TABLET PO SCH (20:41)
[2020-02-27] MEDS: TraZODone HCL 150 MG TABLET PO SCH (20:42)
[2020-02-28 05:25] VITALS: BP 137/92
[2020-02-28] MEDS: CloNIDine HCL 0.1 MG TABLET PO SCH ×4 (05:27→22:15)
[2020-02-28] MEDS: OxyCODONE HCL 5 MG IR TABLET PO PRN ×2 (05:27→13:35)
[2020-02-28] MEDS ORDERED: DULoxetine HCL 60 MG CAPSULE PO SCH (09:00)
[2020-02-28] MEDS: THIAMINE 100 MG TABLET PO SCH ×2 (09:18→16:47)
[2020-02-28] MEDS: ACAMPROSATE CALCIUM 333 MG DR TABLET PO SCH ×3 (09:18→16:47)
[2020-02-28] MEDS: FOLIC ACID 1 MG TABLET PO SCH (09:18)
[2020-02-28] MEDS: MULTIVITAMINS WITH MINERALS, THERAPEUTIC TABLET PO SCH (09:18)
[2020-02-28] MEDS: OMEGA-3/DHA/EPA/FISH OIL 1,000 MG CAPSULE PO SCH (09:19)
[2020-02-28] MEDS: GABAPENTIN 400 MG CAPSULE PO SCH ×3 (09:22→16:47)
[2020-02-28] MEDS: HydrOXYzine PAMOATE 50 MG CAPSULE PO PRN (09:41)
[2020-02-28] MEDS ORDERED: OxyCODONE HCL 10 MG ER TABLET PO PRN (13:21)
[2020-02-28] MEDS ORDERED: METHYL SALICYLATE/MENTHOL 85 GM CREAM TP PRN (17:45)
[2020-02-28] MEDS ORDERED: PREGABALIN 50 MG CAPSULE PO ONE (18:00)
[2020-02-28] MEDS: TraZODone HCL 150 MG TABLET PO SCH (20:36)
[2020-02-28] MEDS: MELATONIN 5 MG TABLET PO SCH (20:37)
[2020-02-28] MEDS: GABAPENTIN 300 MG CAPSULE PO SCH (20:37)
[2020-02-28 22:15] VITALS: BP 128/79
[2020-02-29 01:22] VITALS: BP 132/77
[2020-02-29] MEDS: OxyCODONE HCL 5 MG IR TABLET PO PRN ×2 (01:35→13:31)
[2020-02-29 01:46] VITALS: BP 131/86
[2020-02-29 06:58] VITALS: BP 129/74
[2020-02-29] MEDS: CloNIDine HCL 0.1 MG TABLET PO SCH ×4 (06:59→21:27)
[2020-02-29 08:15] VITALS: BP 124/78
[2020-02-29 08:21] VITALS: BP 124/79
[2020-02-29] MEDS ORDERED: DULoxetine HCL 20 MG CAPSULE PO SCH (09:00)
[2020-02-29] MEDS: MULTIVITAMINS WITH MINERALS, THERAPEUTIC TABLET PO SCH (09:42)
[2020-02-29] MEDS: ACAMPROSATE CALCIUM 333 MG DR TABLET PO SCH ×3 (09:42→16:55)
[2020-02-29] MEDS: THIAMINE 100 MG TABLET PO SCH ×2 (09:42→16:55)
[2020-02-29] MEDS: GABAPENTIN 300 MG CAPSULE PO SCH ×2 (09:42→13:29)
[2020-02-29] MEDS: OMEGA-3/DHA/EPA/FISH OIL 1,000 MG CAPSULE PO SCH (09:42)
[2020-02-29] MEDS: FOLIC ACID 1 MG TABLET PO SCH (09:42)
[2020-02-29] MEDS: PREGABALIN 50 MG CAPSULE PO SCH ×2 (09:43→13:29)
[2020-02-29] MEDS: PREGABALIN 75 MG CAPSULE PO SCH (16:55)
[2020-02-29] MEDS: GABAPENTIN 400 MG CAPSULE PO SCH ×2 (16:55→20:38)
[2020-02-29] MEDS: MELATONIN 5 MG TABLET PO SCH (20:37)
[2020-02-29] MEDS: TraZODone HCL 100 MG TABLET PO SCH (20:37)
[2020-02-29] MEDS: ZOLPIDEM TARTRATE 10 MG TABLET PO PRN (20:38)
[2020-02-29 21:26] VITALS: BP 111/69
[2020-03-01 02:47] VITALS: BP 142/79
[2020-03-01] MEDS: OxyCODONE HCL 5 MG IR TABLET PO PRN ×2 (04:19→16:20)
[2020-03-01] MEDS: CloNIDine HCL 0.1 MG TABLET PO SCH ×4 (06:00→22:00)
[2020-03-01] MEDS ORDERED: DULoxetine HCL 30 MG CAPSULE PO SCH (09:00)
[2020-03-01 09:06] VITALS: BP 135/82
[2020-03-01] MEDS: MULTIVITAMINS WITH MINERALS, THERAPEUTIC TABLET PO SCH (09:38)
[2020-03-01] MEDS: GABAPENTIN 400 MG CAPSULE PO SCH ×2 (09:38→12:51)
[2020-03-01] MEDS: FOLIC ACID 1 MG TABLET PO SCH (09:38)
[2020-03-01] MEDS: ACAMPROSATE CALCIUM 333 MG DR TABLET PO SCH ×3 (09:39→16:17)
[2020-03-01] MEDS: PREGABALIN 75 MG CAPSULE PO SCH ×2 (09:39→12:51)
[2020-03-01] MEDS: THIAMINE 100 MG TABLET PO SCH ×2 (09:39→16:18)
[2020-03-01] MEDS: OMEGA-3/DHA/EPA/FISH OIL 1,000 MG CAPSULE PO SCH (09:49)
[2020-03-01 15:48] VITALS: BP 135/69
[2020-03-01 16:00] VITALS: BP 140/77
[2020-03-01] MEDS: GABAPENTIN 300 MG CAPSULE PO SCH ×2 (16:18→19:59)
[2020-03-01] MEDS: PREGABALIN 50 MG CAPSULE PO SCH (16:18)
[2020-03-01 16:52] VITALS: BP 140/77
[2020-03-01] MEDS: MELATONIN 5 MG TABLET PO SCH (19:59)
[2020-03-01] MEDS: TraZODone HCL 100 MG TABLET PO SCH (19:59)
[2020-03-01] MEDS: ZOLPIDEM TARTRATE 10 MG TABLET PO PRN (20:14)
[2020-03-02 03:09] VITALS: BP 117/74
[2020-03-02] MEDS: OxyCODONE HCL 5 MG IR TABLET PO PRN (03:53)
[2020-03-02] MEDS: CloNIDine HCL 0.1 MG TABLET PO SCH ×4 (06:17→22:00)
[2020-03-02 06:34] VITALS: BP 136/81
[2020-03-02] MEDS: ACAMPROSATE CALCIUM 333 MG DR TABLET PO SCH ×3 (08:46→16:13)
[2020-03-02] MEDS: THIAMINE 100 MG TABLET PO SCH ×2 (08:46→16:26)
[2020-03-02] MEDS: OMEGA-3/DHA/EPA/FISH OIL 1,000 MG CAPSULE PO SCH (08:46)
[2020-03-02] MEDS: GABAPENTIN 300 MG CAPSULE PO SCH ×3 (08:47→16:26)
[2020-03-02] MEDS: PREGABALIN 50 MG CAPSULE PO SCH ×3 (08:47→16:26)
[2020-03-02] MEDS: MULTIVITAMINS WITH MINERALS, THERAPEUTIC TABLET PO SCH (08:47)
[2020-03-02] MEDS: DULoxetine HCL 60 MG CAPSULE PO SCH (08:47)
[2020-03-02] MEDS: FOLIC ACID 1 MG TABLET PO SCH (08:47)
[2020-03-02 16:25] VITALS: BP 132/88
[2020-03-02] MEDS ORDERED: OxyCODONE HCL 5 MG IR TABLET PO ONE (16:45)
[2020-03-02] MEDS ORDERED: ZOLPIDEM TARTRATE 10 MG TABLET PO PRN (17:30)
[2020-03-02 18:24] VITALS: BP 132/88
[2020-03-02] MEDS: TraZODone HCL 100 MG TABLET PO SCH (20:02)
[2020-03-02] MEDS: MELATONIN 5 MG TABLET PO SCH (20:06)
[2020-03-02] MEDS: ZOLPIDEM TARTRATE 10 MG TABLET PO SCH (20:34)
[2020-03-03 00:50] VITALS: BP 130/80
[2020-03-03 05:28] VITALS: BP 124/84
[2020-03-03] MEDS: CloNIDine HCL 0.1 MG TABLET PO SCH ×4 (06:24→21:50)
[2020-03-03] MEDS: THIAMINE 100 MG TABLET PO SCH ×2 (09:32→16:47)
[2020-03-03] MEDS: DULoxetine HCL 60 MG CAPSULE PO SCH (09:32)
[2020-03-03] MEDS: FOLIC ACID 1 MG TABLET PO SCH (09:32)
[2020-03-03] MEDS: PREGABALIN 50 MG CAPSULE PO SCH ×3 (09:32→16:53)
[2020-03-03] MEDS: GABAPENTIN 300 MG CAPSULE PO SCH ×3 (09:33→16:48)
[2020-03-03] MEDS: MULTIVITAMINS WITH MINERALS, THERAPEUTIC TABLET PO SCH (09:33)
[2020-03-03] MEDS: ACAMPROSATE CALCIUM 333 MG DR TABLET PO SCH ×3 (09:33→16:47)
[2020-03-03] MEDS: OMEGA-3/DHA/EPA/FISH OIL 1,000 MG CAPSULE PO SCH (09:33)
[2020-03-03] MEDS: OxyCODONE HCL 5 MG IR TABLET PO PRN (14:02)
[2020-03-03 16:22] VITALS: BP 100/64
[2020-03-03] MEDS ORDERED: ONDANSETRON HCL 4 MG/2 ML VIAL IM PRN (18:30)
[2020-03-03] MEDS ORDERED: LOPERAMIDE HCL 2 MG CAPSULE PO PRN (18:30)
[2020-03-03] MEDS: HydrOXYzine PAMOATE 50 MG CAPSULE PO PRN (20:59)
[2020-03-03] MEDS: ZOLPIDEM TARTRATE 10 MG TABLET PO SCH (21:50)
[2020-03-03] MEDS: MELATONIN 5 MG TABLET PO SCH (21:50)
[2020-03-03] MEDS: TraZODone HCL 100 MG TABLET PO SCH (21:50)
[2020-03-04 04:00] VITALS: BP 123/78
[2020-03-04] MEDS: CloNIDine HCL 0.1 MG TABLET PO SCH ×4 (06:52→21:26)
[2020-03-04 06:53] VITALS: BP 130/70
[2020-03-04 08:00] VITALS: BP 132/75
[2020-03-04] MEDS: ACAMPROSATE CALCIUM 333 MG DR TABLET PO SCH ×3 (10:29→17:29)
[2020-03-04] MEDS: GABAPENTIN 300 MG CAPSULE PO SCH ×3 (10:29→17:29)
[2020-03-04] MEDS: OMEGA-3/DHA/EPA/FISH OIL 1,000 MG CAPSULE PO SCH (10:30)
[2020-03-04] MEDS: DULoxetine HCL 60 MG CAPSULE PO SCH (10:30)
[2020-03-04] MEDS: MULTIVITAMINS WITH MINERALS, THERAPEUTIC TABLET PO SCH (10:30)
[2020-03-04] MEDS: PREGABALIN 50 MG CAPSULE PO SCH ×3 (10:30→17:29)
[2020-03-04] MEDS: FOLIC ACID 1 MG TABLET PO SCH (10:30)
[2020-03-04 13:00] VITALS: BP 132/75
[2020-03-04] MEDS: OxyCODONE HCL 5 MG IR TABLET PO PRN (13:00)
[2020-03-04 17:25] VITALS: BP 105/67
[2020-03-04] MEDS: TraZODone HCL 100 MG TABLET PO SCH (20:14)
[2020-03-04] MEDS: ZOLPIDEM TARTRATE 10 MG TABLET PO SCH (20:14)
[2020-03-04] MEDS: MELATONIN 5 MG TABLET PO SCH (20:14)
[2020-03-04 21:26] VITALS: BP 116/78
[2020-03-05 00:30] VITALS: BP 123/80
[2020-03-05] MEDS: CloNIDine HCL 0.1 MG TABLET PO SCH ×4 (05:51→22:06)
[2020-03-05 08:06] VITALS: BP 124/74
[2020-03-05] MEDS: OxyCODONE HCL 5 MG IR TABLET PO PRN (08:06)
[2020-03-05 09:00] VITALS: BP 124/74
[2020-03-05] MEDS: ACAMPROSATE CALCIUM 333 MG DR TABLET PO SCH ×3 (09:04→16:14)
[2020-03-05] MEDS: DULoxetine HCL 60 MG CAPSULE PO SCH (09:04)
[2020-03-05] MEDS: OMEGA-3/DHA/EPA/FISH OIL 1,000 MG CAPSULE PO SCH (09:04)
[2020-03-05] MEDS: MULTIVITAMINS WITH MINERALS, THERAPEUTIC TABLET PO SCH (09:05)
[2020-03-05] MEDS: PREGABALIN 50 MG CAPSULE PO SCH ×3 (09:05→16:14)
[2020-03-05] MEDS: GABAPENTIN 300 MG CAPSULE PO SCH ×2 (09:05→12:59)
[2020-03-05] MEDS: GABAPENTIN 100 MG CAPSULE PO SCH (16:14)
[2020-03-05 17:21] VITALS: BP 110/80
[2020-03-05 17:48] VITALS: BP 110/80
[2020-03-05] MEDS: HydrOXYzine PAMOATE 50 MG CAPSULE PO PRN (20:30)
[2020-03-05] MEDS: ZOLPIDEM TARTRATE 10 MG TABLET PO SCH (20:34)
[2020-03-05] MEDS: TraZODone HCL 100 MG TABLET PO SCH (20:34)
[2020-03-05] MEDS: MELATONIN 5 MG TABLET PO SCH (20:34)
[2020-03-06 02:18] VITALS: BP 114/65
[2020-03-06] MEDS: CloNIDine HCL 0.1 MG TABLET PO SCH ×4 (05:47→22:34)
[2020-03-06] MEDS: LOPERAMIDE HCL 2 MG CAPSULE PO PRN (05:48)
[2020-03-06] MEDS: OxyCODONE HCL 5 MG IR TABLET PO PRN (08:11)
[2020-03-06 08:31] VITALS: BP 113/65
[2020-03-06] MEDS: DULoxetine HCL 60 MG CAPSULE PO SCH (09:32)
[2020-03-06] MEDS: GABAPENTIN 100 MG CAPSULE PO SCH ×2 (09:32→12:29)
[2020-03-06] MEDS: OMEGA-3/DHA/EPA/FISH OIL 1,000 MG CAPSULE PO SCH (09:32)
[2020-03-06] MEDS: PREGABALIN 50 MG CAPSULE PO SCH ×3 (09:32→18:10)
[2020-03-06] MEDS: MULTIVITAMINS WITH MINERALS, THERAPEUTIC TABLET PO SCH (09:33)
[2020-03-06] MEDS: ACAMPROSATE CALCIUM 333 MG DR TABLET PO SCH ×3 (09:33→18:09)
[2020-03-06] MEDS ORDERED: OxyCODONE HCL 10 MG ER TABLET PO PRN (13:21)
[2020-03-06] MEDS ORDERED: PREG50 PO (15:45)
[2020-03-06] MEDS ORDERED: TRAZ-257 PO (15:45)
[2020-03-06] MEDS ORDERED: DULO-8 PO (15:45)
[2020-03-06] MEDS ORDERED: OMEG-135 PO (15:45)
[2020-03-06] MEDS ORDERED: MELA5TAB3 PO (15:45)
[2020-03-06] MEDS ORDERED: ACAM333T7 PO (15:45)
[2020-03-06] MEDS: TraZODone HCL 100 MG TABLET PO SCH (19:54)
[2020-03-06] MEDS: ZOLPIDEM TARTRATE 10 MG TABLET PO SCH (19:54)
[2020-03-06] MEDS: MELATONIN 5 MG TABLET PO SCH (21:00)
[2020-03-07 03:54] VITALS: BP 110/62
[2020-03-07] MEDS: OxyCODONE HCL 5 MG IR TABLET PO PRN (06:19)
[2020-03-07] MEDS: CloNIDine HCL 0.1 MG TABLET PO SCH (06:39)
[2020-03-07] MEDS: ACAMPROSATE CALCIUM 333 MG DR TABLET PO SCH (08:07)
[2020-03-07] MEDS: MULTIVITAMINS WITH MINERALS, THERAPEUTIC TABLET PO SCH (08:07)
[2020-03-07] MEDS: OMEGA-3/DHA/EPA/FISH OIL 1,000 MG CAPSULE PO SCH (08:07)
[2020-03-07] MEDS: PREGABALIN 50 MG CAPSULE PO SCH (08:07)
[2020-03-07] MEDS: DULoxetine HCL 60 MG CAPSULE PO SCH (08:10)
== END 2020-03-07 12:10 | disposition home or self-care (01) | DRG 885 ==
LOC: EMS 05:23 → B2S 13:28 → B3A 02-25 20:30
PROVIDERS: ADMIT Psychiatry & Neurology Psychiatry; ATTEND Psychiatry & Neurology Psychiatry
DX: F33.2 Major depressive disorder, recurrent severe without psychotic features (principal); R45.851 Suicidal ideations; F41.9 Anxiety disorder, unspecified; G89.29 Other chronic pain; Z20.822 Contact with and (suspected) exposure to COVID-19; N40.0 Benign prostatic hyperplasia without lower urinary tract symptoms; Z81.8 Family history of other mental and behavioral disorders; Z91.14 Patient's other noncompliance with medication regimen; K59.00 Constipation, unspecified
CPT/HCPCS: 80361; 87081; 87426; 99285; A9575; G0480; J1200; J2060; J2405; J3230